=== PATIENT | male | born 1995 | race Caucasian/White ===

== ENCOUNTER 2022-01-04 06:59 | Emergency (ER) | payer BC ==
[~2022-01-04] VITALS: Ht 170.2 cm; Wt 112.5 kg
[2022-01-04 07:29] LABS: BASOPHILS % (AUTO) 0.2 % (0.0-2.0); EOSINOPHILS % (AUTO) 0.7 % (0.0-6.0); HEMATOCRIT 45 % (39-51); HEMOGLOBIN 15.4 g/dL (13.5-17.5); LYMPHOCYTES # (AUTO) 0.8 K/uL (0.8-4.8); LYMPHOCYTES % (AUTO) 5.3 % (20.0-44.0); MEAN CORPUSCULAR HGB CONC 34 g/dl (31.0-36.0); MEAN CORPUSCULAR VOLUME 86 fL (80-96); MONOCYTES # (AUTO) 0.4 K/uL (0.1-1.30); NEUTROPHILS # (AUTO) 13.1 K/uL (1.8-8.9); NEUTROPHILS % (AUTO) 90.8 % (43.0-81.0); PLATELET COUNT (AUTO) 305 K/uL (150-450); RED BLOOD CELL COUNT(AUTO) 5.26 MIL/uL (4.5-6.0); WHITE BLOOD COUNT (AUTO) 14.5 K/uL (4.3-11.0)
[2022-01-04] MEDS ORDERED: ONDANSETRON HCL/PF 4 MG/2 ML VIAL IVP ONE (07:30)
[2022-01-04] MEDS ORDERED: IV NS 0.9% 1,000 ML BAG IV ONE (07:30)
--- NOTE | 2022-01-04 07:30 | NUR ---
TO ER BED 6, C/O UPPER ABDOMINAL PAIN, NAUSEA AND VOMITING, UNABLE TO TOLERATE FOOD SINCE 4AM, AAOX3, BREATHING EVEN AND NON LABORED, CONNECTED TO MONITOR, AWAITING MD HILL
[2022-01-04] MEDS ORDERED: ONDANSETRON HCL/PF 4 MG/2 ML VIAL ONE (07:40)
[2022-01-04 07:43] LABS: ALBUMIN 3.8 g/dL (3.4-5.0); BILIRUBIN,DIRECT 0.2 mg/dL (0.0-0.2); BILIRUBIN,TOTAL 0.7 mg/dL (0.2-1.0); CALCIUM, SERUM 9.2 mg/dL (8.5-10.1); POTASSIUM 4.1 mmol/L (3.5-5.1); TOTAL PROTEIN, SERUM 8.1 g/dL (6.4-8.2)
[2022-01-04] MEDS ORDERED: KETOROLAC TROMETHAMINE 15 MG/ML VIAL ONE (07:49)
--- NOTE | 2022-01-04 07:53 | NUR ---
US TECH AT BEDSIDE FOR ULTRASOUND
[2022-01-04] MEDS ORDERED: KETOROLAC TROMETHAMINE INJ 30 MG/ML VIAL IV ONE (08:00)
--- NOTE | 2022-01-04 09:00 | NUR ---
URINE SAMPLE COLLECTED AND SENT TO LAB
[2022-01-04 09:04] LABS: BILIRUBIN,URINE NEGATIVE (NEGATIVE); COLOR,URINE YELLOW (YELLOW); LEUKOCYTE ESTERASE ,URINE NEGATIVE (NEGATIVE); NITRITE, URINE NEGATIVE (NEGATIVE); PH,URINE 7.5 (5.0-8.0); PROTEIN,URINE NEGATIVE (NEGATIVE); UGLUCOSE NEGATIVE (NEGATIVE); UROBILINOGEN,URINE 0.2 EU/dL (0.2)
[2022-01-04 09:22] LABS: BACTERIA,URINE None seen /HPF (None Seen); RBC,URINE NONE SEEN /HPF (0-2); SQUAMOUS EPITHELIAL CELL,UR Rare /HPF (None Seen); WBC,URINE 0-2 /HPF (0-3)
[2022-01-04] MEDS ORDERED: MORPHINE SULFATE INJ 2 MG/ML DISP.SYRIN IV ONE (09:30)
[2022-01-04] MEDS ORDERED: MORPHINE SULFATE INJ 2 MG/ML DISP.SYRIN ONE (09:36)
[2022-01-04] MEDS ORDERED: OMEP20TA20 PO (10:39)
[2022-01-04] MEDS ORDERED: ONDA4TAB11 PO (10:40)
[2022-01-04 10:55] VITALS: BP 131/80
--- NOTE | 2022-01-04 10:55 | NUR ---
Patient discharged to home in stable condition. Written and verbal after care instructions given. Patient verbalizes understanding of instruction.IV removed. Catheter intact and site benign. Pressure and 4x4 applied to site. No bleeding noted.
== END 2022-01-04 10:56 | disposition home or self-care (01) ==
LOC: ER 07:06
DX: R10.9 Unspecified abdominal pain (principal); R11.2 Nausea with vomiting, unspecified; Z79.899 Other long term (current) drug therapy
CPT/HCPCS: 99284; 96374; 96361; 96375; 76705; 71250; 74176; 85025; 80048; 83690; 80076; 81001; 36415; 80320; J2405; J7030; J2270; J1885; G0480

== ENCOUNTER 2023-05-27 04:00 | Emergency (ER) | payer BC ==
[~2023-05-27] VITALS: Ht 170.2 cm; Wt 109.8 kg
[~2023-05-27 04:00] MED LIST: OMEP20TA20 PO; ONDA4TAB11 PO
[2023-05-27] MEDS ORDERED: PANTOPRAZOLE 40 MG VIAL ONE (05:08)
[2023-05-27] MEDS ORDERED: MORPHINE SULFATE INJ 4 MG/ML DISP.SYRIN ONE (05:09)
[2023-05-27] MEDS ORDERED: ONDANSETRON HCL/PF 4 MG/2 ML VIAL ONE (05:09)
[2023-05-27] MEDS: MORPHINE SULFATE INJ 2 MG/ML DISP.SYRIN IV ONE (05:31)
[2023-05-27] MEDS: PANTOPRAZOLE 40 MG VIAL IV ONE (05:31)
[2023-05-27] MEDS: IV NS 0.9% 1,000 ML BAG IV ONE (05:31)
[2023-05-27] MEDS: ONDANSETRON HCL/PF 4 MG/2 ML VIAL IVP ONE (05:31)
[2023-05-27] MEDS ORDERED: IBUP-1953 PO (05:49)
[2023-05-27] MEDS ORDERED: ONDA4TAB5 PO (05:49)
[2023-05-27] MEDS ORDERED: KETOROLAC TROMETHAMINE INJ 30 MG/ML VIAL ONE (05:56)
[2023-05-27] MEDS: KETOROLAC TROMETHAMINE INJ 30 MG/ML VIAL IV ONE (05:56)
[2023-05-27 06:24] LABS: BASOPHILS % (AUTO) 0.4 % (0.0-2.0); EOSINOPHILS # (AUTO) 0.2 K/uL (0.0-0.7); EOSINOPHILS % (AUTO) 1.8 % (0.0-6.0); HEMATOCRIT 43 % (39-51); HEMOGLOBIN 14.4 g/dL (13.5-17.5); LYMPHOCYTES # (AUTO) 2.8 K/uL (0.8-4.8); LYMPHOCYTES % (AUTO) 28.7 % (20.0-44.0); MEAN CORPUSCULAR HEMOGLOBIN 30 PG (26.0-33.0); MEAN CORPUSCULAR HGB CONC 34 g/dl (31.0-36.0); MEAN CORPUSCULAR VOLUME 87 fL (80-96); MONOCYTES # (AUTO) 0.5 K/uL (0.1-1.30); MONOCYTES % (AUTO) 5.4 % (2.0-12.0); NEUTROPHILS # (AUTO) 6.2 K/uL (1.8-8.9); NEUTROPHILS % (AUTO) 63.7 % (43.0-81.0); PLATELET COUNT (AUTO) 298 K/uL (150-450); RED BLOOD CELL COUNT(AUTO) 4.87 MIL/uL (4.5-6.0); RED CELL DISTRIBUTION WIDTH 12.9 % (11.5-15.0); WHITE BLOOD COUNT (AUTO) 9.7 K/uL (4.3-11.0)
[2023-05-27 06:41] LABS: APPEARANCE,URINE CLEAR (CLEAR); BILIRUBIN,URINE NEGATIVE (NEGATIVE); BLOOD, URINE NEGATIVE Ery/uL (NEGATIVE); COLOR,URINE YELLOW (YELLOW); KETONES,URINE NEGATIVE (NEGATIVE); LEUKOCYTE ESTERASE ,URINE NEGATIVE (NEGATIVE); NITRITE, URINE NEGATIVE (NEGATIVE); PROTEIN,URINE NEGATIVE (NEGATIVE); UGLUCOSE NEGATIVE (NEGATIVE); UROBILINOGEN,URINE 0.2 EU/dL (0.2)
[2023-05-27 06:48] LABS: ALBUMIN 3.9 g/dL (3.4-5.0); BILIRUBIN,DIRECT 0.1 mg/dL (0.0-0.2); BILIRUBIN,TOTAL 0.4 mg/dL (0.2-1.0); CALCIUM, SERUM 9.5 mg/dL (8.5-10.1); CREATININE 0.8 mg/dL (0.6-1.3); POTASSIUM 3.5 mmol/L (3.5-5.1)
[2023-05-27 07:48] VITALS: BP 121/77; TEMP 98.6; O2SAT 98
== END 2023-05-27 07:49 | disposition home or self-care (01) ==
LOC: ER 04:05
DX: K80.50 Calculus of bile duct without cholangitis or cholecystitis without obstruction (principal); K76.0 Fatty (change of) liver, not elsewhere classified; R10.11 Right upper quadrant pain; R11.10 Vomiting, unspecified
CPT/HCPCS: 99285; 96374; 76700; 71045; 96375; 96361; 93005; 85025; 80048; 83690; 80076; 81003; 36415; J1885; J2405; J7030; C9113; J2270

== ENCOUNTER 2025-01-03 21:51 | Emergency (ER) | payer BC ==
[~2025-01-03] VITALS: Ht 170.2 cm; Wt 111.1 kg
[~2025-01-03 21:51] MED LIST changes: +IBUP-1953 PO; +ONDA4TAB5 PO
[2025-01-03 22:15] VITALS: TEMP 98.1
[2025-01-03] MEDS ORDERED: MAG HYDROX/AL HYDROX/SIMETH 30 ML UDC ONE (22:25)
[2025-01-03] MEDS ORDERED: ASPIRIN EC 325 MG TABLET.DR PO ONE (22:26)
[2025-01-03] MEDS: ASPIRIN EC 325 MG TABLET.DR PO ONE (22:38)
[2025-01-03] MEDS: MAG HYDROX/AL HYDROX/SIMETH 30 ML UDC PO ONE (22:38)
[2025-01-03 22:52] LABS: PLATELET COUNT (AUTO) 297 K/uL (150-450); RED BLOOD CELL COUNT(AUTO) 4.67 MIL/uL (4.5-6.0); RED CELL DISTRIBUTION WIDTH 13.4 % (11.5-15.0); WHITE BLOOD COUNT (AUTO) 9.7 K/uL (4.3-11.0)
[2025-01-03 22:59] LABS: CALCIUM, SERUM 8.8 mg/dL (8.5-10.1); CREATININE 1.2 mg/dL (0.6-1.3); SODIUM SERUM 140 mmol/L (136-145); UREA NITROGEN, BLOOD 15 mg/dL (7-18)
[2025-01-03 23:13] LABS: NT-PRO BNP < 5 pg/mL (0-125)
[2025-01-04] MEDS ORDERED: IBUP-1957 PO (01:16)
[2025-01-04] MEDS ORDERED: CYCL10TA9 PO (01:16)
[2025-01-04] MEDS ORDERED: ONDA4TAB11 PO (01:16)
[2025-01-04] MEDS ORDERED: ACETAMINOPHEN ES 500 MG TABLET ONE (01:20)
[2025-01-04] MEDS ORDERED: IBUPROFEN 400 MG TABLET ONE (01:21)
[2025-01-04] MEDS ORDERED: CYCLOBENZAPRINE 10 MG TABLET ONE (01:21)
[2025-01-04] MEDS: IBUPROFEN 400 MG TABLET PO ONE (01:30)
[2025-01-04] MEDS: CYCLOBENZAPRINE 10 MG TABLET PO ONE (01:30)
[2025-01-04] MEDS: ACETAMINOPHEN ES 500 MG TABLET PO ONE (01:30)
[2025-01-04 01:32] VITALS: BP 117/72; O2SAT 98
== END 2025-01-04 01:32 | disposition home or self-care (01) ==
LOC: ER 21:53
DX: R07.89 Other chest pain (principal); R11.0 Nausea; R06.02 Shortness of breath; Z79.899 Other long term (current) drug therapy
CPT/HCPCS: 36415; 71045-TC; 80048-TC; 83880; 84484-TC; 85025-TC; 85378-TC